=== PATIENT | female | born 1975 | race Caucasian/White ===

== ENCOUNTER 2021-01-22 13:09 | Emergency (ER) | payer OTHER ==
[~2021-01-22] VITALS: Ht 162.6 cm; Wt 68.0 kg
[~2021-01-22 13:09] MED LIST: MULTIVITAMINS1 EAC7; PEPCID20 MG PO; ZOFRAN ODT4 MG PO
[2021-01-22] MEDS ORDERED: HYDROCODON-ACE1 EAC7 PO (15:22)
[2021-01-22 16:02] VITALS: BP 116/69
== END 2021-01-22 16:04 | disposition home or self-care (01) ==
LOC: M.ERS 13:09
DX: S43.004A Unspecified dislocation of right shoulder joint, initial encounter (principal); Z98.890 Other specified postprocedural states; W10.8XXA Fall (on) (from) other stairs and steps, initial encounter; Y93.89 Activity, other specified; Y92.89 Other specified places as the place of occurrence of the external cause; Y99.9 Unspecified external cause status